=== PATIENT | male | born 1980 | race Caucasian/White ===

== ENCOUNTER 2017-10-01 19:11 | Emergency (ER) | payer MEDICAID ==
[2017-10-01] MEDS: IBUPROFEN 600 MG TAB PO (21:21)
== END 2017-10-01 22:40 | disposition home or self-care (01) ==
LOC: FTE 19:11
DX: S40.021A Contusion of right upper arm, initial encounter (principal); F17.210 Nicotine dependence, cigarettes, uncomplicated; W18.30XA Fall on same level, unspecified, initial encounter; Y92.322 Soccer field as the place of occurrence of the external cause
CPT/HCPCS: 73090; 99283-25